=== PATIENT | female | born 1985 | race Caucasian/White ===

== ENCOUNTER 2017-12-07 00:30 | Emergency (ER) | payer MEDICAID ==
[2017-12-07 01:21] VITALS: BP 116/78
--- NOTE | 2017-12-07 02:03 | EDM.PDOC ---
ED HPI GENERAL MEDICAL PROBLEM - General Chief Complaint: Genitourinary Problem Stated Complaint: BLADDER INFECTION Time Seen by Provider: 12/07/17 01:25 Source of Information: Reports: Patient History Limitations: Reports: No Limitations - History of Present Illness INITIAL COMMENTS - FREE TEXT/NARRATIVE: pt arrived with a history of urinary frequency and burning. She does have fairly frequent utis. 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: - Infectious Disease History Infectious Disease History: Reports: Chicken Pox - Past Surgical History HEENT Surgical History: Reports: LASIK Female Surgical History: Reports: Tubal Ligation Social & Family History - Tobacco Use Smoking Status *Q: Never Smoker Years of Tobacco use: 8 Packs/Tins Daily: 0.2 - Caffeine Use Caffeine Use: Reports: Soda - Recreational Drug Use Recreational Drug Use: No ED ROS GENERAL - Review of Systems Review Of Systems: See Below Constitutional: Reports: No Symptoms HEENT: Reports: No Symptoms Respiratory: Reports: No Symptoms Cardiovascular: Reports: No Symptoms Endocrine: Reports: No Symptoms GI/Abdominal: Reports: No Symptoms : Reports: Dysuria Musculoskeletal: Reports: No Symptoms Skin: Reports: No Symptoms ED EXAM, RENAL/ - Physical Exam Exam: See Below Text/Narrative:: pt arrived with urinary frequency and burning., She has no fever or back pain. Exam Limited By: No Limitations General Appearance: Alert, Mild Distress Ears: Normal TMs Nose: Normal Inspection Throat/Mouth: Normal Inspection Head: Atraumatic Neck: Normal Inspection Respiratory/Chest: No Respiratory Distress Cardiovascular: Regular Rate, Rhythm GI/Abdominal: Soft, Non-Tender, Other (pt is having some suprapupic pain. ) (Female) Exam: Deferred Rectal (Female) Exam: Deferred Back Exam: Normal Inspection Extremities: Normal Inspection Neurological: Alert, Oriented, Normal Cognition Course - Vital Signs Last Recorded V/S: Last Vital Signs Temp 36.1 C 12/07/17 01:19 Pulse 108 H 12/07/17 01:19 Resp 15 12/07/17 01:19 BP 116/78 12/07/17 01:19 Pulse Ox 96 12/07/17 01:19 - Orders/Labs/Meds Orders: Active Orders 24 hr Category Date Time Status CULTURE URINE [RM] Stat Lab 12/07/17 02:05 Received Labs: Laboratory Tests 12/07/17 Range/Units 01:16 Urine Color [place] Urine Appearance Cloudy Urine pH 5.0 (4.5-8.0) Ur Specific [place] 1.030 (1.008-1.030) Urine Protein 30 H (NEGATIVE) mg/dL Urine Glucose (UA) Normal (NEGATIVE) mg/dL Urine Ketones Negative (NEGATIVE) mg/dL Urine Occult Blood Negative (NEGATIVE) Urine Nitrite Positive H (NEGATIVE) Urine Bilirubin Moderate (NEGATIVE) Urine Urobilinogen 4 (NORMAL) mg/dL Ur Leukocyte Esterase Small (NEGATIVE) Urine RBC 0-5 (0-5) Urine WBC 10-20 H (0-5) Ur Epithelial Cells Moderate Amorphous Sediment Not seen Urine Bacteria Many Urine Mucus Few - Re-Assessments/Exams Free Text/Narrative Re-Assessment/Exam: 12/07/17 02:09 urine looked infected. Because of her history of frequent infections a culture was set up. Departure - Departure Time of Disposition: 02:01 Disposition: Home, Self-Care 01 Condition: Fair Clinical Impression: UTI (urinary tract infection) - Discharge Information Referrals: PCP,None [Primary Care Provider] - Forms: ED Department Discharge Care Plan Goals: push fluids, pyridium 200mg tid, cipro 500mg bid for 10 days. - My Orders Last 24 Hours: My Active Orders 12/07/17 02:05 CULTURE URINE [RM] Stat - Assessment/Plan Last 24 Hours: My Active Orders 12/07/17 02:05 CULTURE URINE [RM] Stat
== END 2017-12-07 02:09 | disposition home or self-care (01) ==
LOC: JP.ED 00:30
DX: N39.0 Urinary tract infection, site not specified (principal)
CPT/HCPCS: 81001; 87086; 87088; 87186; 99284

== ENCOUNTER 2017-12-27 06:45 | Day surgery (SDC) | payer MEDICAID ==
[~2017-12-27 06:45] MED LIST: Lidocaine 1% with EPINEPHrine 1:100,000 50 ML MDV ONE; Sodium Chloride 0.9% 10 ML ONE; Sodium Tetradecyl Sulfate 1% 20 MG/2 ML SDV ONE
[2017-12-27] MEDS ORDERED: Midazolam 1 MG/ML 2 ML SDV ONE (07:14)
[2017-12-27] MEDS ORDERED: fentaNYL 100 MCG/2 ML SDV ONE (07:14)
[2017-12-27] MEDS ORDERED: Propofol 200 MG/20 ML SDV ONE ×2 (07:14→08:26)
[2017-12-27] MEDS ORDERED: Lactated Ringers 1,000 ML IV SCH (07:15)
[2017-12-27] MEDS ORDERED: Lidocaine 1% w/EPINEPHrine 50 ML, Sodium Bicarbonate 5 MEQ in Sodium Chloride 0.9% 950 ML INJECT ONE (07:45)
--- NOTE | 2017-12-27 09:44 | OR ---
DATE OF PROCEDURE: 12/27/2017 PROCEDURE: 1. Radiofrequency ablation of right greater saphenous vein. 2. Sclerotherapy right leg, multiple. 3. Compression right leg ([id number]), 20 mmHg pressure, [id number] configuration, distal to proximal gradient. COMPLICATIONS: None. 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 PREOPERATIVE DIAGNOSIS: Chronic venous insufficiency with inflammation and pain. POSTOP DIAGNOSIS: Chronic venous insufficiency with inflammation and pain. RISKS: Risks, benefits, alternatives, and limitations including, but not limited to infection, bleeding, and DVT formation were explained to the patient and wished to proceed. PROCEDURE IN DETAIL: The patient was placed in supine position. The right leg was prepped and draped. The greater saphenous vein was accessed at the level of the ankle. This would be accessed in a classic Seldinger technique, using a 21-gauge needle, then exchanged for a 35,000th wire, and then exchanged to a 7-Wolof sheath. RFA probe was advanced to 3 cm from the saphenous femoral junction. Tumescent fluid was injected in 1 cm jacket around this and verified a second and a third time. RFA was deployed x2 proximally and distally and x1 in all other segments with direct even pressure. Sheath and device were then removed. Direct pressure was held for 10 minutes and Dermabond was applied. Sclerotherapy was performed on the right leg. There were 5 on the right. This was injected using 0.33% sodium tetradactyl, and always drawn back to ensure intravascular injection only. No more than 2 mL injected in 1 location. Two-stage [id number] distal to proximal 20 mmHg compression gradient wrap was then performed. The patient tolerated the procedure well. Fletcher Taylor MD /[id number]
[2017-12-27 09:59] VITALS: BP 100/73
== END 2017-12-27 09:55 | disposition home or self-care (01) ==
LOC: JP.SDS 06:45
PROVIDERS: ATTEND Surgery
DX: I83.11 Varicose veins of right lower extremity with inflammation (principal); I83.811 Varicose veins of right lower extremity with pain; F17.200 Nicotine dependence, unspecified, uncomplicated
CPT/HCPCS: 36471; 36475; J1642; J2250; J2704; J3010; J7050; J7120

== ENCOUNTER 2018-03-04 02:03 | Emergency (ER) | payer MEDICAID ==
[2018-03-04 02:18] VITALS: BP 144/61
[2018-03-04] MEDS ORDERED: Alum Hydrox/Mag Hydrox/Simeth 15 ML, Lidocaine 2% 15 ML PO ONE ×2 (02:19)
--- NOTE | 2018-03-04 02:28 | EDM.PDOC ---
ED HPI GENERAL MEDICAL PROBLEM - General Chief Complaint: ENT Problem Stated Complaint: HEARTBURN,CHEST PAIN Time Seen by Provider: 03/04/18 02:15 Source of Information: Reports: Patient, Old Records, RN History Limitations: Reports: No Limitations - History of Present Illness INITIAL COMMENTS - FREE TEXT/NARRATIVE: 32 yo 5 ppd smoking female presents with pain with swallowing since about 11 pm Sunday night(3+ hrs). Tried Zantac, Peptobismol, and TUMS without relief. No change in bowels. No vomiting. Is not on NSAID's regularly. Had chicken with rice for supper. Has a hx of heart burn, but this is worse and more persistent than anything she's had before. Also reports concurrent waxing and waning pain substernally and in her back. Comes and goes every few seconds. 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 Denies: Abdominal Pain, Anorexia, Black Stool, Bloody Stool, Constipation, Diarrhea, Distension, Flatus, Hematemesis, Hematochezia, Melena, Nausea, Vomiting : Reports: No Symptoms Musculoskeletal: Reports: No Symptoms Skin: Reports: No Symptoms Neurological: Reports: No Symptoms ED EXAM, ENT - Physical Exam Exam: See Below Exam Limited By: No Limitations General Appearance: Alert, WD/WN, No Apparent Distress Eye Exam: Bilateral Eye: Normal Inspection Ears: Normal External Exam, Normal Canal, Hearing Grossly Normal Nose: Normal Inspection, Normal Mucousa, No Blood Mouth/Throat: Normal Inspection, Normal Lips, Normal Oropharynx Head: Atraumatic, Normocephalic Neck: Normal Inspection, Supple, Non-Tender Respiratory/Chest: No Respiratory Distress, Lungs Clear, Normal Breath Sounds, No Accessory Muscle Use, Chest Non-Tender Cardiovascular: Regular Rate, Rhythm, No Edema GI/Abdominal: Soft, No Distention, Tender (epigastrium). No: Non-Tender, Guarding, Rigid, Rebound Extremities: Normal Inspection Neurological: Alert, Oriented, CN II-XII Intact, Normal Cognition, No Motor/ Sensory Deficits Psychiatric: Normal Affect, Normal Mood Skin: Warm, Dry, Intact, Normal Color, No Rash Lymphatic: No Adenopathy EKG INTERPRETATION EKG Date: 03/04/18 Time: 02:40 Rhythm: NSR Rate (Beats/Min): 85 [place]: Normal P-Wave: Present QRS: Normal ST-T: Normal QT: Normal Comparison: NA - No Prior EKG Course - Vital Signs Text/Narrative:: GI cocktail po-provided transient relief Last Recorded V/S: Last Vital Signs Temp 36.4 C 03/04/18 02:16 Pulse 91 03/04/18 02:16 Resp 16 03/04/18 02:16 BP 144/61 H 03/04/18 02:16 Pulse Ox 97 03/04/18 02:16 - Orders/Labs/Meds Orders: Active Orders 24 hr Category Date Time Status EKG Documentation Completion [RC] ASDIRECTED Care 03/04/18 02:34 Active Pantoprazole [ProTONIX] Med 03/04/18 03:00 Active 40 mg PO DAILY EKG 12 Lead [EK] Routine Ther 03/04/18 02:34 Ordered Medication Orders Pantoprazole Sodium (Protonix) 40 mg PO DAILY AIDE Meds: Medications Generic Name Dose Route Start Last Admin Trade Name Freq PRN Reason Stop Dose Admin Pantoprazole Sodium 40 mg 03/04/18 03:00 Protonix PO DAILY AIDE Discontinued Medications Generic Name Dose Route Start Last Admin Trade Name Freq PRN Reason Stop Dose Admin Acetaminophen 1,000 mg 03/04/18 02:49 Tylenol Extra Strength PO 03/04/18 02:50 ONETIME ONE Al Hydroxide/Mg Hydroxide 15 0 ml 03/04/18 02:19 03/04/18 02:31 ml/ Lidocaine HCl 15 ml PO 03/04/18 02:20 15 ml ONETIME ONE Administration Departure - Departure Time of Disposition: 03:00 Disposition: Home, Self-Care 01 Condition: Fair Clinical Impression: GERD with esophagitis - Discharge Information Referrals: PCP,None [Primary Care Provider] - Forms: ED Department Discharge - My Orders Last 24 Hours: My Active Orders 03/04/18 02:34 EKG Documentation Completion [RC] ASDIRECTED EKG 12 Lead [EK] Routine 03/04/18 03:00 Pantoprazole [ProTONIX] 40 mg PO DAILY - Assessment/Plan Last 24 Hours: My Active Orders 03/04/18 02:34 EKG Documentation Completion [RC] ASDIRECTED EKG 12 Lead [EK] Routine 03/04/18 03:00 Pantoprazole [ProTONIX] 40 mg PO DAILY
[2018-03-04] MEDS ORDERED: Acetaminophen 500 MG Tab PO ONE (02:49)
[2018-03-04] MEDS ORDERED: Pantoprazole 40 MG Tab.CR PO SCH (03:00)
== END 2018-03-04 03:10 | disposition home or self-care (01) ==
LOC: JP.ED 02:03
DX: K21.0 Gastro-esophageal reflux disease with esophagitis (principal)
CPT/HCPCS: 93005; 99284; A9270

== ENCOUNTER 2018-04-08 21:55 | Emergency (ER) | payer MEDICAID ==
[2018-04-08] MEDS ORDERED: Ketorolac 30 MG/ML SDV IVPUSH ONE (23:02)
[2018-04-08] MEDS ORDERED: Sodium Chloride 0.9% 10 ML Syringe FLUSH PRN (23:02)
--- NOTE | 2018-04-08 23:06 | EDM.PDOC ---
ED HPI GENERAL MEDICAL PROBLEM - General Chief Complaint: Abdominal Pain Stated Complaint: ABD PAIN Time Seen by Provider: 04/08/18 22:41 Source of Information: Reports: Patient, Old Records, RN Notes Reviewed History Limitations: Reports: No Limitations - History of Present Illness INITIAL COMMENTS - FREE TEXT/NARRATIVE: Brought by her sister Chief complaint Abdominal pain History of present illness 32-year-old female was fine today and about 5 PM started developing a bad taste in her mouth and then crampy and sharp upper abdominal pain associated with nausea but no retching or vomiting or diarrhea. She's had similar symptoms previously, one time she was diagnosed as having a gallbladder attack. She is also been diagnosed with esophageal reflux. Pain is worse lying down better if she curls up comes in waves that are very sharp the last for several seconds and are very distracting. No recent cough or cold or fever symptoms. 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 - Infectious Disease History Infectious Disease History: Reports: Chicken Pox - Past Surgical History HEENT Surgical History: Reports: LASIK GI Surgical History: Reports: None Social & Family History - Family History Family Medical History: Noncontributory - Tobacco Use Smoking Status *Q: Current Every Day Smoker Years of Tobacco use: 10 Packs/Tins Daily: 0.5 Used Tobacco, but Quit: No - Caffeine Use Caffeine Use: Reports: Soda - Recreational Drug Use Recreational Drug Use: No ED ROS GENERAL - Review of Systems Review Of Systems: See Below Constitutional: Reports: No Symptoms HEENT: Reports: No Symptoms Respiratory: Reports: No Symptoms Cardiovascular: Reports: No Symptoms Endocrine: Reports: No Symptoms GI/Abdominal: Reports: Abdominal Pain, Nausea. Denies: Constipation, Diarrhea, Difficulty Swallowing, Vomiting : Reports: No Symptoms Musculoskeletal: Reports: No Symptoms Skin: Reports: No Symptoms Neurological: Reports: No Symptoms Hematologic/Lymphatic: Reports: No Symptoms ED EXAM, GI/ABD - Physical Exam Exam: See Below Exam Limited By: No Limitations General Appearance: Alert, Mild Distress, Moderate Distress (Most of the time when she has spells of more severe pain), Other (Vital signs are normal, color normal) Eyes: Bilateral: Normal Appearance Ears: Normal External Exam, Hearing Grossly Normal Nose: Normal Inspection Throat/Mouth: Normal Inspection, Normal Oropharynx Head: Atraumatic, Normocephalic Neck: Normal Inspection, Full Range of Motion Respiratory/Chest: No Respiratory Distress, Normal Breath Sounds, No Accessory Muscle Use Cardiovascular: Normal Peripheral Pulses, Regular Rate, Rhythm GI/Abdominal Exam: Normal Bowel Sounds, Soft, No Distention, Tender (Right upper quadrant and epigastric, positive Quigley's). No: Guarding, Rigid, Rebound Extremities: Normal Inspection, Non-Tender Neurological: Alert, Oriented, Normal Cognition Psychiatric: Normal Mood Skin Exam: Warm, Dry, Intact, Normal Color, No Rash Lymphatic: No Adenopathy Course - Vital Signs Last Recorded V/S: Last Vital Signs Temp 36.7 C 04/09/18 00:16 Pulse 82 04/09/18 00:16 Resp 16 04/09/18 00:16 BP 123/57 L 04/09/18 00:16 Pulse Ox 98 04/09/18 00:16 - Orders/Labs/Meds Orders: Active Orders 24 hr Category Date Time Status Peripheral IV Care [RC] . DIRECTED Care 04/08/18 23:02 Active Abdomen Pelvis w Cont [CT] Stat Exams 04/09/18 00:14 Taken Sodium Chloride 0.9% [Normal Saline] 1,000 ml Med 04/08/18 23:15 Active IV ASDIRECTED Sodium Chloride 0.9% [Saline Flush] Med 04/08/18 23:02 Active 10 ml FLUSH ASDIRECTED PRN Peripheral IV Insertion Adult [OM.PC] Routine Oth 04/08/18 23:02 Ordered Medication Orders Sodium Chloride (Normal Saline) 1,000 mls @ 250 mls/hr IV ASDIRECTED AIDE Last Admin: 04/08/18 23:22 Dose: 250 mls/hr Sodium Chloride (Saline Flush) 10 ml FLUSH ASDIRECTED PRN PRN Reason: Keep Vein Open Last Admin: 04/08/18 23:20 Dose: 10 ml Labs: Laboratory Tests 04/08/18 04/08/18 Range/Units 23:10 23:10 WBC 22.9 H (4.5-11.0) K/uL RBC 4.84 (3.30-5.50) M/uL Hgb 14.9 (12.0-15.0) g/dL Hct 45.2 (36.0-48.0) % MCV 93 (80-98) fL MCH 31 (27-31) pg MCHC 33 (32-36) % Plt Count 363 (150-400) K/uL Sodium 138 L (140-148) mmol/L Potassium 4.1 (3.6-5.2) mmol/L Chloride 104 (100-108) mmol/L Carbon Dioxide 26 (21-32) mmol/L Anion Gap 12.1 (5.0-14.0) mmol/L BUN 13 (7-18) mg/dL Creatinine 0.7 (0.6-1.0) mg/dL Est Cr Clr Drug Dosing 101.90 mL/min Estimated GFR (MDRD) > 60 (>60) Glucose 100 (74-106) mg/dL Calcium 8.5 (8.5-10.1) mg/dL Total Bilirubin 0.2 (0.2-1.0) mg/dL AST 14 L (15-37) U/L ALT 18 (12-78) U/L Alkaline Phosphatase 88 (46-116) U/L Total Protein 7.3 (6.4-8.2) g/dL Albumin 3.6 (3.4-5.0) g/dL Globulin 3.7 H (2.3-3.5) g/dL Albumin/Globulin Ratio 1.0 L (1.2-2.2) Lipase 74 (73-393) U/L Meds: Medications Generic Name Dose Route Start Last Admin Trade Name Freq PRN Reason Stop Dose Admin Sodium Chloride 1,000 mls @ 250 mls/hr 04/08/18 23:15 04/08/18 23:22 Normal Saline IV 250 mls/hr ASDIRECTED AIDE Administration Sodium Chloride 10 ml 04/08/18 23:02 04/08/18 23:20 Saline Flush FLUSH 10 ml ASDIRECTED PRN Administration Keep Vein Open Discontinued Medications Generic Name Dose Route Start Last Admin Trade Name Stephan PRN Reason Stop Dose Admin Sodium Chloride 70 mls @ 3 mls/sec 04/09/18 00:36 04/09/18 00:44 Normal Saline IV 04/09/18 00:37 3 mls/sec ASDIRECTED STA Administration Iopamidol 100 ml 04/09/18 00:35 04/09/18 00:44 Isovue-300 (61%) IV 04/09/18 00:36 100 ml . DIRECTED STA Administration Ketorolac Tromethamine 15 mg 04/08/18 23:02 04/08/18 23:20 Toradol IVPUSH 04/08/18 23:03 15 mg ONETIME ONE Administration - Re-Assessments/Exams Free Text/Narrative Re-Assessment/Exam: 04/08/18 23:05 32-year-old female with acute epigastric abdominal pain associated with nausea. Differential diagnosis includes dyspepsia, gastritis, peptic ulcer, biliary colic, colitis, reflux. Intravenous saline, ketorolac 15 mg, labs ordered 04/09/18 00:14 Pain is improved significantly with the medication Elevated white count 22.for Normal hepatic enzymes Normal renal function She still has some tenderness on exam Recommend CT abdomen pelvis with IV contrast 04/09/18 01:48 Patient remains essentially pain-free CT scan shows enteritis distal jejunum or ileum likely infectious, not likely to be inflammatory bowel disease. Of note is that liver gallbladder bile ducts were normal Treat with fluids and OTC analgesics as needed Return to emergency if high fever, vomiting, bad diarrhea or severe pain Departure - Departure Time of Disposition: 01:49 Disposition: Home, Self-Care 01 Condition: Good Clinical Impression: Enteritis of infectious origin Qualifiers: Enteritis organism: unspecified infectious agent Qualified Code(s): A09 - Infectious gastroenteritis and colitis, unspecified - Discharge Information Instructions: Viral Gastroenteritis, Adult Referrals: PCP,None [Primary Care Provider] - Forms: ED Department Discharge Additional Instructions: Enteritis is inflammation of the wall of the small intestine. Most likely caused by a virus although bacteria can also cause this. Fluid diet only until your pain improves If you are pain-free in the morning he can start with soft foods Get rechecked if you have severe pain recurring, recurrent vomiting, high fever or bad diarrhea - My Orders Last 24 Hours: My Active Orders 04/08/18 23:02 Peripheral IV Care [RC] . DIRECTED Sodium Chloride 0.9% [Saline Flush] 10 ml FLUSH ASDIRECTED PRN Peripheral IV Insertion Adult [OM.PC] Routine 04/08/18 23:15 Sodium Chloride 0.9% [Normal Saline] 1,000 ml IV ASDIRECTED 04/09/18 00:14 Abdomen Pelvis w Cont [CT] Stat - Assessment/Plan Last 24 Hours: My Active Orders 04/08/18 23:02 Peripheral IV Care [RC] . DIRECTED Sodium Chloride 0.9% [Saline Flush] 10 ml FLUSH ASDIRECTED PRN Peripheral IV Insertion Adult [OM.PC] Routine 04/08/18 23:15 Sodium Chloride 0.9% [Normal Saline] 1,000 ml IV ASDIRECTED 04/09/18 00:14 Abdomen Pelvis w Cont [CT] Stat
[2018-04-08] MEDS ORDERED: Sodium Chloride 0.9% 1,000 ML IV SCH (23:15)
[2018-04-09] MEDS: Iopamidol 612 MG/ML 100 ML Bottle IV STA (00:44)
[2018-04-09 02:17] VITALS: BP 124/68
== END 2018-04-09 02:05 | disposition home or self-care (01) ==
LOC: JP.ED 21:55
DX: A09 Infectious gastroenteritis and colitis, unspecified (principal); F17.210 Nicotine dependence, cigarettes, uncomplicated
CPT/HCPCS: 36415; 74177; 80053; 83690; 85027; 96361; 96374; 99284; J1885; J7030; J7050; Q9967

== ENCOUNTER 2018-04-14 13:20 | Emergency (ER) | payer MEDICAID ==
[2018-04-14 13:55] VITALS: BP 122/57
[2018-04-14] MEDS ORDERED: Metoclopramide 10 MG/2 ML SDV IVPUSH ONE (14:38)
[2018-04-14] MEDS ORDERED: Ketorolac 30 MG/ML SDV IVPUSH ONE (14:39)
[2018-04-14] MEDS ORDERED: Sodium Chloride 0.9% 1,000 ML IV SCH (14:45)
--- NOTE | 2018-04-14 16:03 | EDM.PDOC ---
ED HPI GENERAL MEDICAL PROBLEM - General Chief Complaint: Abdominal Pain Stated Complaint: ON GOING BELLY PAIN GOES INTO THE BACK Time Seen by Provider: 04/14/18 13:54 Source of Information: Reports: Patient History Limitations: Reports: No Limitations - History of Present Illness INITIAL COMMENTS - FREE TEXT/NARRATIVE: 32 yo female presents with ongoing ABD cramping and diarrhea. pt was seen 6 days ago for like symptoms. poor oral intake. diarrhea last 48 hours multiple times per day. nausea without emesis. generalized pain with most severe pain in RUQ. 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 Denies: Fever, Chills Respiratory: Denies: Shortness of Breath, Wheezing Cardiovascular: Denies: Chest Pain GI/Abdominal: Reports: Abdominal Pain Skin: Denies: Rash ED EXAM, GI/ABD - Physical Exam Exam: See Below Exam Limited By: No Limitations General Appearance: Alert, WD/WN, No Apparent Distress Respiratory/Chest: No Respiratory Distress, Lungs Clear, Normal Breath Sounds. No: Crackles, Rhonchi, Wheezing Cardiovascular: Normal Peripheral Pulses, Regular Rate, Rhythm, No Edema GI/Abdominal Exam: Normal Bowel Sounds, Soft, No Organomegaly, No Distention, Tender Back Exam: Normal Inspection, Full Range of Motion. No: CVA Tenderness (R), CVA Tenderness (L) Neurological: Alert, Oriented Psychiatric: Normal Affect, Normal Mood Skin Exam: Warm, Dry, Intact Course - Vital Signs Last Recorded V/S: Last Vital Signs Temp 35.9 C 04/14/18 13:58 Pulse 74 04/14/18 13:58 Resp 12 04/14/18 13:58 BP 122/57 L 04/14/18 13:58 Pulse Ox 98 04/14/18 13:58 - Orders/Labs/Meds Labs: Laboratory Tests 04/14/18 04/14/18 Range/Units 14:54 14:54 WBC 11.6 H (4.5-11.0) K/uL RBC 4.57 (3.30-5.50) M/uL Hgb 14.2 (12.0-15.0) g/dL Hct 42.7 (36.0-48.0) % MCV 93 (80-98) fL MCH 31 (27-31) pg MCHC 33 (32-36) % Plt Count 327 (150-400) K/uL Neut % (Auto) 63 (36-66) % Lymph % (Auto) 25 (24-44) % [place] % (Auto) 9 H (2-6) % Eos % (Auto) 3 (2-4) % Baso % (Auto) 1 (0-1) % Sodium 138 L (140-148) mmol/L Potassium 4.3 (3.6-5.2) mmol/L Chloride 104 (100-108) mmol/L Carbon Dioxide 26 (21-32) mmol/L Anion Gap 12.3 (5.0-14.0) mmol/L BUN 11 (7-18) mg/dL Creatinine 0.7 (0.6-1.0) mg/dL Est Cr Clr Drug Dosing 106.01 mL/min Estimated GFR (MDRD) > 60 (>60) Glucose 89 (74-106) mg/dL Calcium 9.0 (8.5-10.1) mg/dL Total Bilirubin 0.3 (0.2-1.0) mg/dL AST 14 L (15-37) U/L ALT 20 (12-78) U/L Alkaline Phosphatase 84 (46-116) U/L Total Protein 7.2 (6.4-8.2) g/dL Albumin 3.6 (3.4-5.0) g/dL Globulin 3.6 H (2.3-3.5) g/dL Albumin/Globulin Ratio 1.0 L (1.2-2.2) Meds: Medications Discontinued Medications Generic Name Dose Route Start Last Admin Trade Name Stephan PRN Reason Stop Dose Admin Sodium Chloride 1,000 mls @ 999 mls/hr 04/14/18 14:45 04/14/18 14:53 Normal Saline IV 999 mls/hr ASDIRECTED AIDE Administration Ketorolac Tromethamine 30 mg 04/14/18 14:39 04/14/18 14:53 Toradol IVPUSH 04/14/18 14:40 30 mg ONETIME ONE Administration Metoclopramide HCl 5 mg 04/14/18 14:38 04/14/18 14:53 Reglan IVPUSH 04/14/18 14:39 5 mg ONETIME ONE Administration - Re-Assessments/Exams Free Text/Narrative Re-Assessment/Exam: 04/14/18 18:22 pain resolved while in ER. pt unable to leave stool sample will follow-up in primary care Departure - Departure Time of Disposition: 16:01 Disposition: Home, Self-Care 01 Condition: Good Clinical Impression: Gastroenteritis - Discharge Information Instructions: Viral Gastroenteritis, Adult, [place] Referrals: PCP,None [Primary Care Provider] - Forms: ED Department Discharge Additional Instructions: advance diet as tolerated clear liquids through the night maintain hydration at 1.5-2 liters per day follow-up with primary care for stool testing if diarrhea continues
== END 2018-04-14 16:12 | disposition home or self-care (01) ==
LOC: JP.ED 13:20
DX: K52.9 Noninfective gastroenteritis and colitis, unspecified (principal); K21.9 Gastro-esophageal reflux disease without esophagitis; Z79.899 Other long term (current) drug therapy
CPT/HCPCS: 36415; 80053; 85025; 96361; 96374; 96375; 99284; J1885; J2765; J7030

== ENCOUNTER 2019-04-25 22:43 | Emergency (ER) | payer MEDICAID ==
[2019-04-25 23:37] VITALS: BP 132/83; PULSE 82
[2019-04-25] MEDS ORDERED: Alum Hydrox/Mag Hydrox/Simeth 15 ML, Lidocaine 2% 15 ML PO ONE ×2 (23:56)
--- NOTE | 2019-04-26 00:01 | EDM.PDOC ---
ED HPI GENERAL MEDICAL PROBLEM - General Chief Complaint: Abdominal Pain Stated Complaint: ABD PAIN Time Seen by Provider: 04/25/19 23:45 Source of Information: Reports: Patient, Old Records, RN History Limitations: Reports: No Limitations - History of Present Illness INITIAL COMMENTS - FREE TEXT/NARRATIVE: 33 yo female presents with central abdominal pain that began a few days ago and has progressed. Has mild nausea without vomiting. No black or bloody stools. No change in bowels or urinary sx's. Pain worse with eating or drinking. Does best with milk and soda crackers. Was here a couple weeks ago for abdominal pain with diarrhea, states this is different. Has tried Peptobismol and Zantac without benefit. Onset: Gradual Onset Date: 04/23/19 Duration: Day(s): (2), Getting Worse Location: Reports: Abdomen Quality: Reports: Ache, Burning Severity: Moderate Improves with: Reports: None Worsens with: Reports: Other (time, eating or drinking) Context: Reports: Other (see HPI) Associated Symptoms: Reports: Nausea/Vomiting (mild nausea only). 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 - Infectious Disease History Infectious Disease History: Reports: Chicken Pox - Past Surgical History HEENT Surgical History: Reports: LASIK GI Surgical History: Reports: None Female Surgical History: Reports: Tubal Ligation Social & Family History - Family History Family Medical History: Noncontributory - Tobacco Use Smoking Status *Q: Current Every Day Smoker Years of Tobacco use: 5 Packs/Tins Daily: 0.5 - Caffeine Use Caffeine Use: Reports: Soda - Recreational Drug Use Recreational Drug Use: No ED ROS GENERAL - Review of Systems Review Of Systems: See Below Constitutional: Reports: No Symptoms HEENT: Reports: No Symptoms Respiratory: Reports: No Symptoms Cardiovascular: Reports: No Symptoms Endocrine: Reports: No Symptoms GI/Abdominal: Reports: Abdominal Pain, Nausea. Denies: Black Stool, Bloody Stool, Constipation, Diarrhea, Distension, Flatus, Hematemesis, Hematochezia, Melena, Vomiting Musculoskeletal: Reports: No Symptoms Skin: Reports: No Symptoms Neurological: Reports: No Symptoms Psychiatric: Reports: No Symptoms ED EXAM, GI/ABD - Physical Exam Exam: See Below Exam Limited By: No Limitations General Appearance: Alert, WD/WN, No Apparent Distress Eyes: Bilateral: Normal Appearance Ears: Normal External Exam, Normal Canal, Hearing Grossly Normal Nose: Normal Inspection, No Blood Throat/Mouth: Normal Inspection, Normal Lips, Normal Oropharynx, Normal Voice, No Airway Compromise Head: Atraumatic, Normocephalic Neck: Normal Inspection Respiratory/Chest: No Respiratory Distress, Lungs Clear, Normal Breath Sounds, No Accessory Muscle Use Cardiovascular: Regular Rate, Rhythm, No Edema GI/Abdominal Exam: Normal Bowel Sounds, Soft, No Distention, Tender (central, epigastric and LUQ) Back Exam: Normal Inspection. No: CVA Tenderness (R), CVA Tenderness (L) Extremities: Normal Inspection, Normal Range of Motion, Non-Tender, No Pedal Edema Neurological: Alert, Oriented, CN II-XII Intact, Normal Cognition, No Motor/ Sensory Deficits Psychiatric: Normal Affect, Normal Mood Skin Exam: Warm, Dry, Intact, Normal Color, No Rash Course - Vital Signs Last Recorded V/S: Last Vital Signs Temp 35.5 C 04/25/19 23:40 Pulse 82 04/25/19 23:40 Resp 16 04/25/19 23:40 BP 132/83 04/25/19 23:40 Pulse Ox 97 04/25/19 23:40 - Orders/Labs/Meds Orders: Active Orders 24 hr Category Date Time Status Pantoprazole [ProTONIX] Med 04/26/19 00:15 Ordered 40 mg PO DAILY Medication Orders Pantoprazole Sodium (Protonix) 40 mg PO DAILY AIDE Meds: Medications Generic Name Dose Route Start Last Admin Trade Name Freq PRN Reason Stop Dose Admin Pantoprazole Sodium 40 mg 04/26/19 00:15 Protonix PO DAILY AIDE Discontinued Medications Generic Name Dose Route Start Last Admin Trade Name Stephan PRN Reason Stop Dose Admin Hydrocodone Bitart/Acetaminophen 2 tab 04/26/19 00:10 [place] 325-5 Mg PO 04/26/19 00:11 ONETIME ONE Al Hydroxide/Mg Hydroxide 15 0 ml 04/25/19 23:56 04/25/19 23:59 ml/ Lidocaine HCl 15 ml PO 04/25/19 23:57 30 ml ONETIME ONE Administration Departure - Departure Time of Disposition: 00:12 Disposition: Home, Self-Care 01 Condition: Fair Clinical Impression: Gastritis Qualifiers: Gastritis type: unspecified gastritis Chronicity: acute Gastritis bleeding: without bleeding Qualified Code(s): K29.00 - Acute gastritis without bleeding - Discharge Information *PRESCRIPTION DRUG MONITORING PROGRAM REVIEWED*: No *COPY OF PRESCRIPTION DRUG MONITORING REPORT IN PATIENT NOHEMY: No Prescriptions: Omeprazole 40 mg PO BEDTIME #30 cap.sr Instructions: Gastritis, Adult, [id number] Referrals: PCP,None [Primary Care Provider] - Forms: ED Department Discharge Additional Instructions: Take omeprazole every evening. Take either acetaminophen OR [place] for pain relief. You may use Peptobismol as needed. Return a stool specimen for testing. Avoid ibuprofen, Aleve, aspirin, caffeine, tobacco, carbonated beverages, or alcohol. Recheck with your doctor next week. - My Orders Last 24 Hours: My Active Orders 04/26/19 00:15 Pantoprazole [ProTONIX] 40 mg PO DAILY - Assessment/Plan Last 24 Hours: My Active Orders 04/26/19 00:15 Pantoprazole [ProTONIX] 40 mg PO DAILY
[2019-04-26] MEDS ORDERED: Acetaminophen/HYDROcodone 325-5 MG Tab PO ONE (00:10)
[2019-04-26] MEDS ORDERED: Pantoprazole 40 MG Tab.CR PO SCH (00:15)
== END 2019-04-26 00:47 | disposition home or self-care (01) ==
LOC: JP.ED 22:43
DX: K29.00 Acute gastritis without bleeding (principal); K21.9 Gastro-esophageal reflux disease without esophagitis; F17.210 Nicotine dependence, cigarettes, uncomplicated; Z79.899 Other long term (current) drug therapy; Z98.51 Tubal ligation status
CPT/HCPCS: 99283; A9270

== ENCOUNTER 2021-06-24 21:45 | Emergency (ER) | payer MEDICAID ==
[2021-06-24] MEDS ORDERED: Bupivacaine 0.5% 10 ML SDV ONE (21:57)
[2021-06-24] MEDS ORDERED: Bupivacaine 0.5%/EPINEPHrine 1:200,000 1.8 ML Cartridge INJECT ONE ×2 (21:59→22:09)
[2021-06-24] MEDS ORDERED: Bupivacaine 0.5%/EPINEPHrine 1:200,000 1.8 ML Cartridge ONE (22:02)
--- NOTE | 2021-06-24 22:19 | EDM.PDOC ---
ED HPI GENERAL MEDICAL PROBLEM - General Chief Complaint: ENT Problem Stated Complaint: SEVERE TOOTH PAIN Time Seen by Provider: 06/24/21 21:50 Source of Information: Reports: Patient History Limitations: Reports: No Limitations - History of Present Illness INITIAL COMMENTS - FREE TEXT/NARRATIVE: Smita John is a 36-year-old female presenting to the ED with severe dental pain. She has a history of tooth issues involving tooth #17. She has had some increasing pain over the last day from this tooth but now has swelling and severe pain. She was seen in the walk-in clinic yesterday thinking that she may have had an ear infection. She was found to have a serous effusion but no evidence for an infection. Today she started having localized pain at the base of tooth #17 with swelling of the gum. She has hypersensitive to temperature change of the tooth. She is very sensitive to any pressure or touching of the tooth. Chewing is intolerable. Pain is a 10 out of 10. She denies any fever but she is on day 9 of being positive for COVID-19. He denies any difficulty swallowing or throat pain. 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 - Infectious Disease History Infectious Disease History: Reports: Chicken Pox - Past Surgical History HEENT Surgical History: Reports: LASIK GI Surgical History: Reports: None Female Surgical History: Reports: Tubal Ligation Social & Family History - Family History Family Medical History: No Pertinent Family History - Tobacco Use Tobacco Use Status *Q: Never Tobacco User - Caffeine Use Caffeine Use: Reports: Soda ED ROS ENT - Review of Systems Review Of Systems: See Below Constitutional: Reports: No Symptoms HEENT: Reports: Dental Pain (Severe dental pain involving tooth #17) Respiratory: Reports: No Symptoms Cardiovascular: Reports: No Symptoms ED EXAM, ENT - Physical Exam Exam: See Below Exam Limited By: No Limitations General Appearance: Alert, Anxious, Moderate Distress Mouth/Throat: Normal Oropharynx, Dental Abcess (Significant redness and swelling of the gingiva at the base of tooth #17. There is no abscess to drain.), Dental Pain (Tooth #17), Dental Tenderness (Exquisitely tender to even light touch. There is an enormous amount of amalgam around this tooth from previous repairs. Patient previously had a fracture of this tooth and was told by her dentist that it may or may not remain stable. This repair was done a year ago.), Gum Swelling. No: Hoarse Voice, Lip Swelling, Throat Swelling, Tongue Swelling, Tonsillar Swelling Head: Atraumatic, Normocephalic, Facial Tenderness (Tenderness over the left mandible at the angle of the jaw.). No: Facial Swelling Neck: Normal Inspection, Full Range of Motion. No: Lymphadenopathy (R), Lymphadenopathy (L) Course - Vital Signs Last Recorded V/S: Last Vital Signs Temp 36.2 C 06/24/21 22:07 Pulse 88 06/24/21 22:07 Resp 16 06/24/21 22:07 BP 148/74 H 06/24/21 22:07 Pulse Ox 98 06/24/21 22:07 - Orders/Labs/Meds Meds: Medications Discontinued Medications Generic Name Dose Route Start Last Admin Trade Name Stephan PRN Reason Stop Dose Admin Bupivacaine HCl Confirm 06/24/21 21:57 06/24/21 22:06 Bupivacaine 0.5% 10 Ml Sdv Administered 06/24/21 21:58 Not Given Dose 10 ml .ROUTE .STK-MED ONE Bupivacaine HCl/Epinephrine Bitart 1.8 ml 06/24/21 21:59 06/24/21 22:06 Bupivacaine 0.5%/Epinephrine 1:200,000 1.8 Ml Cartridge INJECT 06/24/21 22:00 1.8 ml ONETIME ONE Administration Bupivacaine HCl/Epinephrine Bitart Confirm 06/24/21 22:02 06/24/21 22:06 Bupivacaine 0.5%/Epinephrine 1:200,000 1.8 Ml Cartridge Administered 06/24/21 22:03 Not Given Dose 1.8 ml .ROUTE .STK-MED ONE Bupivacaine HCl/Epinephrine Bitart 1.8 ml 06/24/21 22:09 06/24/21 22:11 Bupivacaine 0.5%/Epinephrine 1:200,000 1.8 Ml Cartridge INJECT 06/24/21 22:10 Not Given ONETIME ONE - Re-Assessments/Exams Free Text/Narrative Re-Assessment/Exam: 06/24/21 22:16 after obtaining verbal consent and going over risks and benefits, I performed a left sided inferior alveolar nerve block to try to anesthetize tooth #17. This was done with bupivacaine 0.5% with epinephrine 1: 200,000 instilling 1.8 mL around the left inferior alveolar nerve adjacent to the mandible. The patient was observed for 5 to 10 minutes with good anesthesia. We will continue to treat this with clindamycin 300 mg 3 times daily for 10 days. She should follow-up with a dentist as soon as possible. I will also include a prescription for hydrocodone 5/325 mg 10 tablets dispensed in the [employer] machine. Indications return to the ED were discussed. 06/24/21 22:19 Departure - Departure Time of Disposition: 22:17 Disposition: Home, Self-Care 01 Clinical Impression: Dental abscess - Discharge Information Instructions: Dental Abscess, [id number] Referrals: PCP,None [Primary Care Provider] - Care Plan Goals: We are starting you on clindamycin 2 capsules 3 times a day for 10 days. Have also sent a prescription for hydrocodone for pain control. Continue to use the Aleve as the mainstay of pain with hydrocodone for breakthrough pain. Follow-up with your dentist as soon as possible to further investigate whether this tooth is viable. Feel free to contact us should you have any additional questions. Sepsis Event Note (ED) - Evaluation Sepsis Screening Result: No Definite Risk - Focused Exam Vital Signs: Vital Signs Temp Pulse Resp BP Pulse Ox 06/24/21 22:07 36.2 C 88 16 148/74 H 98 - Problem List & Annotations (1) Dental abscess SNOMED Code(s): 629099385 Code(s): K04.7 - PERIAPICAL ABSCESS WITHOUT SINUS Status: Acute Priority: Low Current Visit: Yes - Problem List Review Problem List Initiated/Reviewed/Updated: Yes
[2021-06-24 22:27] VITALS: BP 148/74; PULSE 88
== END 2021-06-24 22:26 | disposition home or self-care (01) ==
LOC: JP.ED 21:45
DX: K04.7 Periapical abscess without sinus (principal)
CPT/HCPCS: 64400; 99282; J3490

== ENCOUNTER 2021-06-25 10:23 | Emergency (ER) | payer MEDICAID ==
[2021-06-25 13:21] VITALS: BP 113/68; PULSE 67
[2021-06-25] MEDS ORDERED: Lidocaine 1% with EPINEPHrine 1:100,000 50 ML MDV INFILT STA (14:04)
--- NOTE | 2021-06-25 14:16 | EDM.PDOC ---
ED HPI GENERAL MEDICAL PROBLEM - General Chief Complaint: ENT Problem Stated Complaint: SEVERE TOOTH PAIN Time Seen by Provider: 06/25/21 14:11 Source of Information: Reports: Patient History Limitations: Reports: No Limitations - History of Present Illness INITIAL COMMENTS - FREE TEXT/NARRATIVE: Left sided jaw and tooth pain for 2 days. Pain worse with touch. Increased pain with mouth opening. Here last night. Given dental block that helped for 6 hrs. Rx Vicodin #10 tabs and clindamycin. Increased pain today. Similar problem early summer. Improved after tooth filled by dentist. Now it is worse than ever. Appointment with DDS on 06/28 in [place]. 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 - Infectious Disease History Infectious Disease History: Reports: Chicken Pox - Past Surgical History HEENT Surgical History: Reports: LASIK GI Surgical History: Reports: None Female Surgical History: Reports: Tubal Ligation Social & Family History - Family History Family Medical History: No Pertinent Family History - Tobacco Use Tobacco Use Status *Q: Never Tobacco User - Caffeine Use Caffeine Use: Reports: Soda - Recreational Drug Use Recreational Drug Use: No ED ROS ENT - Review of Systems Review Of Systems: See Below Constitutional: Denies: Fever, Chills HEENT: Reports: Dental Pain, Ear Pain Respiratory: Reports: No Symptoms Cardiovascular: Reports: No Symptoms GI/Abdominal: Denies: Nausea, Vomiting Musculoskeletal: Reports: Other (left jaw pain) Skin: Reports: No Symptoms Neurological: Reports: No Symptoms ED EXAM, ENT - Physical Exam Exam: See Below Exam Limited By: No Limitations General Appearance: Alert, WD/WN, Moderate Distress Ears: Normal External Exam, Normal Canal, Normal TMs Nose: Normal Inspection Mouth/Throat: Normal Inspection, Normal Gums, Normal Lips, Normal Oropharynx, Other (Pain along left jaw line and teeth.) Neck: Normal Inspection, Supple, Non-Tender, Full Range of Motion, Limited Range of Motion, Thyromegaly. No: Lymphadenopathy (L) Respiratory/Chest: No Respiratory Distress, Lungs Clear Skin: Warm, Dry, Intact ED ENT PROCEDURES - Additional/Other Procedure(s) Other (Free Text) Procedure(s): Dental Block Indication: Left jaw and tooth pain Procedure: Inferior aveolar block done with 5 cc 1% Lidocaine with epinephrine. Pt tolerated it well. Course - Vital Signs Text/Narrative:: The patient was assessed. left molar #[address] soft tissue neck with contrast shows mild lymphadenopathy but no abscess or deep space infection. No airway compromise. Dental block given with good relief of pain. Rx Viscous Xylocaine 2-4% use on affected area 3-4 times a day prn. Follow up with DDS. Continue the antibiotic and take OTC analgesics for pain. Last Recorded V/S: Last Vital Signs Temp 36.4 C 06/25/21 13:20 Pulse 67 06/25/21 13:20 Resp 18 06/25/21 13:20 BP 113/68 06/25/21 13:20 Pulse Ox - Orders/Labs/Meds Orders: Active Orders 24 hr Category Date Time Status Iopamidol [Isovue-300 (61%)] Med 06/25/21 14:30 Active 100 ml IV . DIRECTED Sodium Chloride 0.9% [Normal Saline] 80 ml Med 06/25/21 14:30 Active IV ASDIRECTED Medication Orders Sodium Chloride (Normal Saline) 80 mls @ 3 mls/sec IV ASDIRECTED AIDE Last Admin: 06/25/21 14:43 Dose: 3 mls/sec Documented by: [email or web address] Iopamidol (Iopamidol 612 Mg/Ml 100 Ml Bottle) 100 ml IV . DIRECTED AIDE Last Admin: 06/25/21 14:43 Dose: 100 ml Documented by: [email or web address] Meds: Medications Generic Name Dose Route Start Last Admin Trade Name Freq PRN Reason Stop Dose Admin Sodium Chloride 80 mls @ 3 mls/sec 06/25/21 14:30 06/25/21 14:43 Normal Saline IV 3 mls/sec ASDIRECTED AIDE Administration Iopamidol 100 ml 06/25/21 14:30 06/25/21 14:43 Iopamidol 612 Mg/Ml 100 Ml Bottle IV 100 ml . DIRECTED AIDE Administration Discontinued Medications Generic Name Dose Route Start Last Admin Trade Name Stephan PRN Reason Stop Dose Admin Lidocaine/Epinephrine 10 ml 06/25/21 14:04 06/25/21 14:15 Lidocaine 1% With Epinephrine 1:100,000 50 Ml Mdv INFILT 06/25/21 14:05 10 ml NOW STA Administration Departure - Departure Time of Disposition: 15:58 Disposition: Home, Self-Care 01 Condition: Good Clinical Impression: Pain, dental - Discharge Information Instructions: Dental Pain Referrals: PCP,None [Primary Care Provider] - Forms: ED Department Discharge Sepsis Event Note (ED) - Focused Exam Vital Signs: Vital Signs Temp Pulse Resp BP 06/25/21 13:20 36.4 C 67 18 113/68 - My Orders Last 24 Hours: My Active Orders 06/25/21 14:30 Iopamidol [Isovue-300 (61%)] 100 ml IV . DIRECTED Sodium Chloride 0.9% [Normal Saline] 80 ml IV ASDIRECTED - Assessment/Plan Last 24 Hours: My Active Orders 06/25/21 14:30 Iopamidol [Isovue-300 (61%)] 100 ml IV . DIRECTED Sodium Chloride 0.9% [Normal Saline] 80 ml IV ASDIRECTED
[2021-06-25] MEDS ORDERED: Iopamidol 612 MG/ML 100 ML Bottle IV SCH (14:30)
[2021-06-25] MEDS ORDERED: Sodium Chloride 0.9% 80 ML IV SCH (14:30)
--- NOTE | 2021-06-25 15:24 | CRLCT ---
For Patients: As a result of the Cures Act, medical imaging exams and procedure reports are released immediately into your electronic medical record. You may view this report before your referring provider. If you have questions, please contact your health care provider. INDICATION: Left-sided jaw pain. TECHNIQUE: CT soft tissue of the neck was acquired with 100 cc Isovue-300 IV contrast. COMPARISON: None FINDINGS: Skull base: Unremarkable. Pharynx/Larynx/Trachea: Epiglottis is normal. Airway is patent. Adjacent soft tissues are normal. Salivary glands: Unremarkable. Thyroid gland: Unremarkable. No significant nodules. Lymph nodes: Multiple mildly enlarged bilateral lymph nodes. Vessels: Unremarkable for age. Bones: Unremarkable for age. Misc: No inflammation, mass or fluid collection. Lung apices: Unremarkable. IMPRESSION: Mild lymphadenopathy of uncertain etiology. Parapharyngeal soft tissues and epiglottis are normal. No signs of abscess or inflammation. No other finding to explain pain. Please note that all CT scans at this facility use dose modulation, iterative reconstruction, and/or weight-based dosing when appropriate to reduce radiation dose to as low as reasonably achievable. Dictated by Gilmer Gloria MD @ 06/25/2021 3:22:22 PM (Electronically Signed)
== END 2021-06-25 16:18 | disposition home or self-care (01) ==
LOC: JP.ED 10:23
DX: K08.89 Other specified disorders of teeth and supporting structures (principal)
CPT/HCPCS: 64400; 70491; 99283; Q9967